=== PATIENT | male | born 1960 | race Caucasian/White ===

== ENCOUNTER 2017-03-23 07:47 | Observation (INO) | payer BC ==
[~2017-03-23] VITALS: Ht 182.9 cm; Wt 94.0 kg
[~2017-03-23 07:47] MED LIST: ADVIL,NUPRIN,M200 MG PO; ASPIR 8181 M1 PO; FISH OIL 1,0001 EAC7 PO; LISINOPRIL10 MG PO; MEN'S MULTI-VI1 EACH PO; PROTONIX40 MG PO; VIBRAMYCIN100 MG PO
[2017-03-23] MEDS ORDERED: MELOXICAM15 MG PO (08:46)
[2017-03-23 09:21] LABS: HEMATOCRIT 37.5 % (38.0-50.0); HEMOGLOBIN 13.3 G/DL (12.5-16.6); MCH 30.3 PG (29.0-34.0); MCHC 35.5 G/DL (30.0-36.0); MCV 85.4 FL (86-99); PLATELET COUNT 210 K/uL (156-360); RBC DIS.WIDTH-CV 11.9 % (11.8-14.6); RBC DIS.WIDTH-SD 37.5 % (39-53); RED BLOOD COUNT 4.39 M/uL (4.00-5.50); WHITE BLOOD COUNT 11.9 K/uL (4.1-10.2)
[2017-03-23 09:30] LABS: CHLORIDE 106 mEq/L (99-109); POTASSIUM 4.3 mEq/L (3.7-5.4); SODIUM 142 mEq/L (136-147)
[2017-03-23 09:32] LABS: GLUCOSE 96 mg/dL (70-99)
[2017-03-23 09:36] LABS: CREATININE 1.2 mg/dL (0.6-1.3); GFR ESTIMATE (CALCULATED) > 59 mL/min/ (58.99-99999)
[2017-03-23 09:37] LABS: UREA NITROGEN (BUN) 19 mg/dL (9-23)
[2017-03-23 09:41] LABS: TROP-I INTERPRETATION NEGATIVE; TROPONIN-I < 0.01 ng/mL (0.0-0.30)
[2017-03-23] MEDS ORDERED: FENOFIBRATE160 M1 PO (10:49)
[2017-03-23 12:51] LABS: D-DIMER ELISA < 150.00 ng/mLDDU (<230)
[2017-03-23 15:45] LABS: TROP-I INTERPRETATION NEGATIVE; TROPONIN-I < 0.01 ng/mL (0.0-0.30)
[2017-03-23 16:03] VITALS: BP 126/78
[2017-03-23 20:00] VITALS: BP 128/58
[2017-03-23 21:15] LABS: TROP-I INTERPRETATION NEGATIVE; TROPONIN-I < 0.01 ng/mL (0.0-0.30)
[2017-03-23 23:34] VITALS: BP 113/56
[2017-03-24 03:40] VITALS: BP 148/73
[2017-03-24 06:18] VITALS: BP 117/59
== END 2017-03-24 13:13 | disposition home or self-care (01) ==
LOC: EME 07:47 → EDOF 11:34 → ENRESERV 11:36 → 5WEST 15:43
PROVIDERS: Emergency Medicine; Physician Assistant Medical
DX: R07.9 Chest pain, unspecified (principal); I10 Essential (primary) hypertension; E78.5 Hyperlipidemia, unspecified; K21.9 Gastro-esophageal reflux disease without esophagitis; Z82.49 Family history of ischemic heart disease and other diseases of the circulatory system; Z79.82 Long term (current) use of aspirin
CPT/HCPCS: 71046; 80048; 84484; 85027; 85379; 93005; G0378; J1650